=== PATIENT | male | born 1970 | race Caucasian/White ===

== ENCOUNTER 2016-02-09 13:52 | Day surgery (SDC) | payer BC ==
[2016-02-01 12:28] VITALS: BMI 36.2
[~2016-02-09 13:52] MED LIST: DEXAMETHASONE SOD PHOSPHATE 10 MG/ML 1 ML VIAL IV ONE; FAMOTIDINE 20 MG/2 ML VIAL IV PRN; HEPARIN SODIUM,PORCINE 5,000 UNIT/ML 1 ML VIAL SQ ONE; LIDOCAINE 1% 20 ML VIAL (10MG/ML) FOR IV START INTRADERMA PRN; MIDAZOLAM 2 MG/2 ML VIAL IV PRN; ONDANSETRON 4 MG/2 ML VIAL IVP ONE; SCOPOLAMINE 1.5MG/72HR PATCH TRANSDERM ONE
[2016-02-09] MEDS: LACTATED RINGERS 1,000 ML IV SCH ×2 (14:03→14:30)
--- NOTE | 2016-02-09 14:35 | P.GSHP ---
History of Present Illness H&P Date: 02/09/16 Chief Complaint: Incarcerated umbilical hernia This a 45-year-old male referred from Dr. Horowitz. Patient developed an incarcerated umbilical hernia. He presents today for laparoscopic robotic assistance repair repair. - Constitutional Constitutional: Reports as per HPI Past Medical History Additional Past Medical History / Comment(s): UMBILICAL HERNIA History of Any Multi-Drug Resistant Organisms: None Reported Past Surgical History: Orthopedic Surgery Additional Past Surgical History / Comment(s): RT THUMB SX Past Anesthesia/Blood Transfusion Reactions: Postoperative Nausea & Vomiting ( PONV) Past Psychological History: Anxiety Smoking Status: Former smoker Past Alcohol Use History: Occasional Additional Past Alcohol Use History / Comment(s): QUIT SMOKING 2013 Past Drug Use History: None Reported - Past Family History Mother Family Medical History: No Reported History Medications and Allergies Home Medications Medication Instructions Recorded Confirmed Type clonazePAM [KlonoPIN] 0.5 mg PO DAILY PRN 02/01/16 02/09/16 History Allergies Allergy/AdvReac Type Severity Reaction Status Date / Time No Known Allergies Allergy Verified 02/01/16 12:19 Surgical - Exam Vital Signs Temp Pulse Resp BP Pulse Ox 97 F L 92 16 174/109 96 02/09/16 14:00 02/09/16 14:00 02/09/16 14:00 02/09/16 14:00 02/09/16 14:00 - General well developed, no distress - Eyes PERRL - ENT normal pinna - Neck no masses - Respiratory normal expansion - Cardiovascular Rhythm: regular - Abdomen Abdomen: soft, non tender Hernia: umbilical Assessment and Plan Plan: Incarcerated umbilical hernia. We'll perform laparoscopic robotic assistance repair.
[2016-02-09] MEDS ORDERED: BUPIVACAIN-EPI 0.25%-1:200,000 30 ML VIAL SQ ONE ×2 (15:05→16:13)
[2016-02-09] MEDS ORDERED: LIDOCAINE 1% INJ 10MG/ML (20 ML MDV) ONE (15:09)
[2016-02-09] MEDS ORDERED: KETOROLAC 30 MG/ML 1 ML VIAL ONE (15:09)
[2016-02-09] MEDS ORDERED: fentaNYL (PF) 50 MCG/ML 2 ML AMP ONE (15:09)
[2016-02-09] MEDS ORDERED: NEOSTIGMINE 1 MG/ML 10 ML VIAL ONE (15:09)
[2016-02-09] MEDS ORDERED: ceFAZolin 1,000 MG VIAL ONE (15:09)
[2016-02-09] MEDS ORDERED: ROCURONIUM BROMIDE 10 MG/ML 10 ML VIAL IV ONE (15:09)
[2016-02-09] MEDS ORDERED: GLYCOPYRROLATE 0.2 MG/ML 2 ML VIAL ONE (15:09)
[2016-02-09] MEDS ORDERED: SUCCINYLCHOLINE CHLORIDE VIAL 200 MG/10 ML VIAL IV ONE (15:09)
[2016-02-09] MEDS ORDERED: SODIUM CHLORIDE 0.9% 100 ML BAG ONE (15:09)
[2016-02-09] MEDS ORDERED: PROPOFOL 10 MG/ML 20 ML VIAL IV ONE (15:09)
[2016-02-09] MEDS ORDERED: MIDAZOLAM 2 MG/2 ML VIAL ONE (15:09)
[2016-02-09] MEDS: ceFAZolin 2 GM in SODIUM CHLORIDE 0.9% 100 ML IVPB ONE ×2 (15:24→15:25)
--- NOTE | 2016-02-09 16:17 | P.OP ---
Date of Procedure: 02/09/16 Preoperative Diagnosis: Incarcerated umbilical hernia Postoperative Diagnosis: Incarcerated umbilical hernia Procedure(s) Performed: Laparoscopic robotic-assisted repair of incarcerated umbilical hernia Anesthesia: [facility] Surgeon: Al Tsang Estimated Blood Loss (ml): 5 Pathology: none sent Condition: stable Disposition: PACU Description of Procedure: The patient's placed on the operative table in the supine position. He received general anesthesia. His abdomen was prepped and draped in sterile fashion. The abdomen was entered through the left upper quadrant using a blade less trocar under direct visualization. After adequate insufflation the laparoscope placed back the pleural cavity. Next a 8 mm robotic trochars placed in the left lower quadrant. And then a 12 mm trochars placed in the left lateral position and another 8 mm trochars placed in the left upper quadrant. The incarcerated umbilical hernia was visualized. Using the hook cautery the incarcerated omentum was withdrawn from the hernia. The fascial defect was then closed using OV lock suture. Next a round ventral light ST mesh was placed. Cavity and secured with 2 OV lock suture. The needles were withdrawn after the patient was undocked from the robot. The fascial 12 mm trocar site was closed with 0 Ethibond suture. Skin was closed interrupted 3-0 Monocryl suture. Dermabond was applied. Patient was sent to recovery in stable condition.
[2016-02-09 16:44] VITALS: TEMP 96.8
[2016-02-09] MEDS: HYDROmorphone 1 MG/ML 1 ML SYRINGE IVP PRN ×5 (16:48→17:03)
[2016-02-09] MEDS ORDERED: HYDROcodone/APAP 7.5-325MG 1 EACH TAB PO ONE (17:35)
[2016-02-09 17:47] VITALS: RESP 16
[2016-02-09 18:08] VITALS: PULSE 90
[2016-02-09 18:22] VITALS: BP 135/89
== END 2016-02-09 18:51 | disposition home or self-care (01) ==
LOC: OR 13:52
PROVIDERS: ATTEND Surgery
DX: K42.0 Umbilical hernia with obstruction, without gangrene (principal); F41.9 Anxiety disorder, unspecified; E66.01 Morbid (severe) obesity due to excess calories; Z68.36 Body mass index [BMI] 36.0-36.9, adult; Z79.899 Other long term (current) drug therapy; Z87.891 Personal history of nicotine dependence
CPT/HCPCS: 49653; S2900

== ENCOUNTER 2016-06-24 11:08 | Observation (INO) | payer BC ==
[2016-06-24] MEDS ORDERED: ASPIRIN 81 MG CHEW PO STA (11:39)
[2016-06-24] MEDS ORDERED: LORazepam 2 MG/ML SYRINGE IV STA (11:39)
[2016-06-24] MEDS ORDERED: NITROGLYCERIN OINT 1 INCH/GM PACKET TOPICAL STA (11:39)
--- NOTE | 2016-06-24 12:16 | ED ---
General Adult HPI - General Chief complaint: Dizziness Stated complaint: HTN,sweats Time Seen by Provider: 06/24/16 11:15 Source: patient, RN notes reviewed Mode of arrival: wheelchair Limitations: no limitations - History of Present Illness Initial comments: This is a 46 her old male who presents emergency department stating that he had some pressure in his chest last night that radiated down his left arm and he continues since then. Patient states it started at 7 PM last evening. Patient states he did wake up with sweats at one point last night and mildly nauseated. Patient states he had no difficulty breathing or shortness of breath. Patient states she's had no recent fever chills or cough. Patient denied any palpitations. Patient denies any chest pain whatsoever. Patient denies abdominal pain patient denies nausea vomiting diarrhea. Patient states she's been trying to get his blood pressure down recently but they've been having a difficult time getting the right medications. Patient states he also is a smoker. - Related Data Home Medications Medication Instructions Recorded Confirmed clonazePAM [KlonoPIN] 0.25 - 0.5 mg PO DAILY PRN 02/01/16 06/24/16 Lisinopril [Zestril] 20 mg PO BID 06/24/16 06/24/16 Allergies Allergy/AdvReac Type Severity Reaction Status Date / Time No Known Allergies Allergy Verified 06/24/16 12:45 Review of Systems ROS Statement: Those systems with pertinent positive or pertinent negative responses have been documented in the HPI. ROS Other: All systems not noted in ROS Statement are negative. Past Medical History Past Medical History: Hypertension Additional Past Medical History / Comment(s): UMBILICAL HERNIA History of Any Multi-Drug Resistant Organisms: None Reported Past Surgical History: Orthopedic Surgery Additional Past Surgical History / Comment(s): RT THUMB SX, umbilical hernia repair Past Anesthesia/Blood Transfusion Reactions: Postoperative Nausea & Vomiting ( PONV) Past Psychological History: Anxiety Smoking Status: Current every day smoker Past Alcohol Use History: Occasional Additional Past Alcohol Use History / Comment(s): QUIT SMOKING 2013 Past Drug Use History: None Reported - Past Family History Mother Family Medical History: No Reported History General Exam - General Exam Comments Initial Comments: GENERAL: Patient is well-developed and well-nourished. Patient is nontoxic and well- hydrated and is in mild distress. ENT: Neck is soft and supple. No significant lymphadenopathy is noted. Oropharynx is clear. Moist mucous membranes. Neck has full range of motion without eliciting any pain. There is no thyroid enlargement and no masses were felt. EYES: The sclera were anicteric and conjunctiva were pink and moist. Extraocular movements were intact and pupils were equal round and reactive to light. Eyelids were unremarkable. PULMONARY: Unlabored respirations. Good breath sounds bilaterally. No audible rales rhonchi or wheezing was noted. CARDIOVASCULAR: There is a regular rate and rhythm without any murmurs gallops or rubs. Femoral pulses are equal bilaterally ABDOMEN: Soft and nontender with normal bowel sounds. No palpable organomegaly was noted. There is no palpable pulsatile mass. SKIN: Skin is clear with no lesions or rashes and otherwise unremarkable. NEUROLOGIC: Patient is alert and oriented x3. Cranial nerves II through XII are grossly intact. Motor and sensory are also intact. Normal speech, volume and content. Symmetrical smile. Cerebellar exam grossly intact. MUSCULOSKELETAL: Normal extremities with adequate strength and full range of motion. No lower extremity swelling or edema. No calf tenderness. LYMPHATICS: No significant lymphadenopathy is noted PSYCHIATRIC: Normal psychiatric evaluation. Normal interpersonal interactions appears functionally intact in deals appropriately with others. No signs of depression. Mild anxiety Limitations: no limitations Course Vital Signs 06/24/16 06/24/16 06/24/16 11:14 12:00 12:25 Temperature 98.6 F Pulse Rate 73 68 89 Respiratory 18 16 16 Rate Blood Pressure 184/107 140/87 144/97 O2 Sat by Pulse 98 97 98 Oximetry 06/24/16 13:40 Temperature 97.8 F Pulse Rate 83 Respiratory 16 Rate Blood Pressure 127/83 O2 Sat by Pulse 98 Oximetry Medical Decision Making - Medical Decision Making EKG shows normal sinus rhythm at 76 bpm WA interval is on a 34 QRS is 90 QT interval 368 QTC is 414 per patient's EKG shows no ST segment elevation or depression or T wave abnormalities are noted. Chest x-ray shows no acute abnormality. Patient's symptoms were significant in the fact that nitroglycerin relieved those symptoms and he feels with the patient was having unstable angina/started the patient on heparin I spoke with Dr. White he agreed about the admission I wrote admitting orders I consult to cardiology and continue the heparin and aspirin and nitro paste on the floor. - Lab Data Result diagrams: 06/24/16 11:45 06/24/16 11:45 Lab Results 06/24/16 06/24/16 06/24/16 Range/Units 11:45 11:45 11:45 WBC 8.7 (3.8-10.6) k/uL RBC 5.89 (4.30-5.90) m/uL Hgb 17.4 (13.0-17.5) gm/dL Hct 52.2 (39.0-53.0) % MCV 88.6 (80.0-100.0) fL MCH 29.6 (25.0-35.0) pg MCHC 33.3 (31.0-37.0) g/dL RDW 13.1 (11.5-15.5) % Plt Count 300 (150-450) k/uL Neutrophils % 70 % Lymphocytes % 19 % Monocytes % 7 % Eosinophils % 2 % Basophils % 1 % Neutrophils # 6.1 (1.3-7.7) k/uL Lymphocytes # 1.7 (1.0-4.8) k/uL Monocytes # 0.6 (0-1.0) k/uL Eosinophils # 0.1 (0-0.7) k/uL Basophils # 0.1 (0-0.2) k/uL PT (9.0-12.0) sec INR (<1.1) APTT (22.0-30.0) sec Sodium 141 (137-145) mmol/L Potassium 4.6 (3.5-5.1) mmol/L Chloride 109 H (98-107) mmol/L Carbon Dioxide 25 (22-30) mmol/L Anion Gap 7 mmol/L BUN 13 (9-20) mg/dL Creatinine 0.91 (0.66-1.25) mg/dL Est GFR (MDRD) Af Amer >60 (>60 ml/min/1.73 sqM) Est GFR (MDRD) Non-Af >60 (>60 ml/min/1.73 sqM) Glucose 95 (74-99) mg/dL Calcium 9.5 (8.4-10.2) mg/dL Magnesium 2.1 (1.6-2.3) mg/dL Total Bilirubin 0.7 (0.2-1.3) mg/dL AST 27 (17-59) U/L ALT 48 (21-72) U/L Alkaline Phosphatase 61 (38-126) U/L Total Creatine Kinase 131 (55-170) U/L CK-MB (CK-2) 1.0 (0.0-2.4) ng/mL CK-MB (CK-2) Rel Index 0.8 Troponin I <0.012 (0.000-0.034) ng/mL Total Protein 7.0 (6.3-8.2) g/dL Albumin 4.2 (3.5-5.0) g/dL 06/24/16 Range/Units 11:45 WBC (3.8-10.6) k/uL RBC (4.30-5.90) m/uL Hgb (13.0-17.5) gm/dL Hct (39.0-53.0) % MCV (80.0-100.0) fL MCH (25.0-35.0) pg MCHC (31.0-37.0) g/dL RDW (11.5-15.5) % Plt Count (150-450) k/uL Neutrophils % % Lymphocytes % % Monocytes % % Eosinophils % % Basophils % % Neutrophils # (1.3-7.7) k/uL Lymphocytes # (1.0-4.8) k/uL Monocytes # (0-1.0) k/uL Eosinophils # (0-0.7) k/uL Basophils # (0-0.2) k/uL PT 10.9 (9.0-12.0) sec INR 1.1 (<1.1) APTT 26.2 (22.0-30.0) sec Sodium (137-145) mmol/L Potassium (3.5-5.1) mmol/L Chloride (98-107) mmol/L Carbon Dioxide (22-30) mmol/L Anion Gap mmol/L BUN (9-20) mg/dL Creatinine (0.66-1.25) mg/dL Est GFR (MDRD) Af Amer (>60 ml/min/1.73 sqM) Est GFR (MDRD) Non-Af (>60 ml/min/1.73 sqM) Glucose (74-99) mg/dL Calcium (8.4-10.2) mg/dL Magnesium (1.6-2.3) mg/dL Total Bilirubin (0.2-1.3) mg/dL AST (17-59) U/L ALT (21-72) U/L Alkaline Phosphatase (38-126) U/L Total Creatine Kinase (55-170) U/L CK-MB (CK-2) (0.0-2.4) ng/mL CK-MB (CK-2) Rel Index Troponin I (0.000-0.034) ng/mL Total Protein (6.3-8.2) g/dL Albumin (3.5-5.0) g/dL Critical Care Time Critical Care Time: Yes Total Critical Care Time: 35 Disposition Clinical Impression: Unstable angina Disposition: ADMITTED IP TO THIS HOSP Referrals: Mica Horowitz MD [Primary Care Provider] - 1-2 days Time of Disposition: 13:54
[2016-06-24 12:17] LABS: INR 1.1 (<1.1); Partial Thromboplastin Time 26.2 sec (22.0-30.0); Prothrombin Time 10.9 sec (9.0-12.0)
[2016-06-24 12:21] LABS: Creatine Kinase 131 U/L (55-170)
[2016-06-24 12:23] LABS: ALT 48 U/L (21-72); AST 27 U/L (17-59); Alkaline Phosphatase 61 U/L (38-126); Anion Gap 7 mmol/L; Blood Urea Nitrogen 13 mg/dL (9-20); Calcium 9.5 mg/dL (8.4-10.2); Carbon Dioxide 25 mmol/L (22-30); Chloride 109 mmol/L (98-107); Glucose 95 mg/dL (74-99); Magnesium 2.1 mg/dL (1.6-2.3); Non-African American GFR(MDRD) >60 (>60 ml/min/1.73 sqM); Potassium 4.6 mmol/L (3.5-5.1); Sodium 141 mmol/L (137-145); Total Bilirubin 0.7 mg/dL (0.2-1.3)
[2016-06-24] MEDS ORDERED: ACETAMINOPHEN TAB 500 MG TAB PO STA (12:24)
[2016-06-24 12:26] LABS: Basophils # (A) 0.1 k/uL (0-0.2); Basophils % (A) 1 %; CH 30.2; CHCM 34.3; Eosinophils # (A) 0.1 k/uL (0-0.7); Eosinophils % (A) 2 %; HCT 52.2 % (39.0-53.0); HDW 2.71; HGB 17.4 gm/dL (13.0-17.5); Luc # (Auto) 0.16; Luc % (Auto) 2; Lymphocytes # (A) 1.7 k/uL (1.0-4.8); Lymphocytes % (A) 19 %; MCH 29.6 pg (25.0-35.0); MCHC 33.3 g/dL (31.0-37.0); MCV 88.6 fL (80.0-100.0); Mean Platelet Volume 7.2; Monocytes # (A) 0.6 k/uL (0-1.0); Monocytes % (A) 7 %; Neutrophils # (A) 6.1 k/uL (1.3-7.7); Neutrophils % (A) 70 %; RBC 5.89 m/uL (4.30-5.90); RDW 13.1 % (11.5-15.5); WBC 8.7 k/uL (3.8-10.6); WBC (Perox) 8.78
--- NOTE | 2016-06-24 12:28 | XR ---
EXAMINATION TYPE: XR chest 2V DATE OF EXAM: 06/24/2016 12:14 PM COMPARISON: None HISTORY: 46-year-old male with chest pain TECHNIQUE: PA and lateral views FINDINGS: The cardiomediastinal silhouette, aorta, and pulmonary vasculature are within normal limits. Mild per ibronchial cuffing. Band of opacity at the right midlung. Otherwise, no consolidation or pleural effu areli. IMPRESSION: 1. Band of atelectasis at the right midlung. 2. Mild peribronchial cuffing. Correlate for any symptoms of bronchitis or chronic asthma
[2016-06-24 12:34] LABS: Troponin I <0.012 ng/mL (0.000-0.034)
[2016-06-24] MEDS ORDERED: HEPARIN SODIUM,PORCINE 5,000 UNIT/ML 1 ML VIAL IV ONE (12:35)
[2016-06-24] MEDS ORDERED: HEPARIN SODIUM,PORCINE/D5W PMX 25,000 UNIT in DEXTROSE/WATER 1 500ML.BAG IV SCH (12:45)
[2016-06-24] MEDS ORDERED: NITROGLYCERIN SL TABS 0.4 MG TAB SUBLINGUAL PRN (13:56)
[2016-06-24] MEDS ORDERED: ACETAMINOPHEN TAB 500 MG TAB PO PRN (17:03)
[2016-06-24 18:16] LABS: Creatine Kinase 99 U/L (55-170)
[2016-06-24 18:29] LABS: Creatine Kinase MB 0.7 ng/mL (0.0-2.4); Troponin I <0.012 ng/mL (0.000-0.034)
[2016-06-24] MEDS: NITROGLYCERIN OINT 1 INCH/GM PACKET TOPICAL SCH (18:29)
[2016-06-24] MEDS ORDERED: clonazePAM 0.5 MG TAB PO PRN (19:06)
[2016-06-24] MEDS: LISINOPRIL 20 MG TAB PO SCH (20:06)
[2016-06-24] MEDS ORDERED: HEPARIN SODIUM,PORCINE 5,000 UNIT/ML 1 ML VIAL IV PRN (20:44)
[2016-06-24 23:48] LABS: Creatine Kinase 89 U/L (55-170)
[2016-06-25 00:01] LABS: Creatine Kinase MB 0.8 ng/mL (0.0-2.4); Troponin I <0.012 ng/mL (0.000-0.034)
[2016-06-25 03:50] LABS: Cholesterol 171 mg/dL (<200); HDL Cholesterol 33 mg/dL (40-60); Triglycerides 138 mg/dL (<150)
[2016-06-25] MEDS: NITROGLYCERIN OINT 1 INCH/GM PACKET TOPICAL SCH ×2 (04:15→06:54)
[2016-06-25 08:11] VITALS: BP 125/77; PULSE 70; RESP 16; TEMP 98.6
[2016-06-25] MEDS: LISINOPRIL 20 MG TAB PO SCH (08:27)
--- NOTE | 2016-06-25 08:59 | CONS ---
DATE OF CONSULTATION: Mr. Ennis is a 46-year-old male patient with hypertension who was initially on lisinopril 20 mg a day. Two weeks back Dr. Horowitz increased it to 20 mg twice daily for elevated blood pressure readings. His blood pressure has been in normal range except yesterday he was under some stress and may have had a salty meal. After that he noted his blood pressures elevated to the 150s and he got very anxious. Repeat blood pressure checks showed that the number was 180 systolic and that made him even more anxious. Subsequently he started having jaw discomfort, chest discomfort and numbness in the fingers and the left arm numbness in the toes and he thought he was having stroke and came to the hospital. REVIEW OF SYSTEMS: No fever, chills, rigors. No cough or expectoration. No nausea, vomiting diarrhea, hematuria, or dysuria. No strokes or seizures. No skin lesions. No musculoskeletal complaints. MEDICATIONS: Lisinopril 20 mg twice daily and Klonopin. ALLERGIES: No known drug allergies. SOCIAL HISTORY: Past history of smoking. He quit smoking in 2013. He recently started smoking again. Minimal social alcohol use. No history of dyslipidemia or diabetes. History of umbilical hernia. On examination, his blood pressure at this time is normal, 125/77 mmHg, heart rate is in the 70s. Head and neck examination is normal. Heart sounds S1, S2 normal. No murmurs, no gallop, no rub. EXTREMITIES: Warm. No edema. ABDOMEN: Soft, nontender. Labs are reviewed. His hemoglobin is normal 17.4, electrolytes are normal. Renal function is normal. Cardiac enzymes are completely normal. LDL is 110, HDL is low at 33, total cholesterol 171, triglycerides 138. 12-lead ECG shows sinus mechanism. No ST segment abnormalities. IMPRESSION: 1. Essential hypertension. 2. Anxiety disorder. 3. Current smoker. 4. Low HDL. SUGGEST: Continue lisinopril 20 mg twice daily, low-fat diet, low-salt diet. Home blood pressure monitoring. I will see him again in about 2 to 3 weeks. He may go home from the cardiac standpoint. His cardiac enzymes are completely normal. EKG is normal.
[2016-06-25] MEDS ORDERED: ASPIRIN 325 MG TAB PO SCH (09:00)
--- NOTE | 2016-06-25 12:17 | HP ---
DATE OF ADMISSION: 06/24/2016 CHIEF COMPLAINT: Left jaw pain. HISTORY OF PRESENT ILLNESS: This is a 46-year-old male with a history of hypertension, presents to the hospital with left jaw pain. Patient said that he has been through a lot of anxiety and stress in his life recently. 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 The patient had this jaw pain and then after that he felt anxious. Presented to the emergency. Initial EKG was normal. Troponin was normal. Patient was kept for observation given the history of hypertension and tobacco dependency. ER physician insists that the patient stay here even the patient asked him if he can go home and follow up with his primary care physician outpatient. Patient denied any nausea or vomiting, sweating, radiation to the left arm or any other symptoms. Patient has no significant family history as his mother has a high cholesterol, his brother and sisters healthy and alive and his dad was way from the patient and they do not know any family history on him. REVIEW OF SYSTEMS: All 14 systems reviewed and negative except as above. ALLERGIES: No known drug allergies. Home medications: 1. Klonopin 0.5 mg as needed. 2. Lisinopril 20 mg twice daily. PAST MEDICAL AND SURGICAL HISTORY: 1. Hypertension. 2. Anxiety. 3. Umbilical hernia. 4. Orthopedic surgery. SOCIAL HISTORY: The patient is smoker, at the bedside. Denied alcohol or drug abuse. FAMILY HISTORY: As mentioned above. PHYSICAL EXAMINATION: VITAL SIGNS: Reviewed and stable. GENERAL: In his stated age, no acute distress. HEENT: Atraumatic, normocephalic. PERRLA. LUNGS: Clear to auscultation bilaterally. HEART: Normal S1, S2. ABDOMEN: Soft, bowel sounds present in all 4 quadrants. EXTREMITIES: Lower extremity no edema. PSYCHIATRY: Alert and oriented x3. NEURO: Cranial nerves II through XII are intact. Normal deep tendon reflexes and sensation. Imaging and labs: CBC normal. Chem-7 normal with lipase, amylase, ALT and AST, within normal limit. Troponin was negative. Albumin normal. PT, PTT, INR within normal limit. EKG showed no ST or T-wave abnormality. ASSESSMENT AND PLAN: 1. Left jaw pain that responded to nitroglycerin, noncardiac related. Troponin negative. EKG is negative. The patient is asymptomatic since that time and believe its only muscle spasm. We will have patient follow-up with his primary care physician after discharge. 2. Hypertension, uncontrolled per patient and his . We will continue Lisinopril once twice daily and consultation medication adherence, diet adherence and close follow up with his primary care physician. 3. Anxiety, seems to be controlled. 4. Tobacco dependency. Long discussion with the patient and his regarding tobacco cessation and he is willing to quit at this point.
== END 2016-06-25 11:48 | disposition home or self-care (01) ==
LOC: EC 11:08 → 3SUR 13:57 → 3OBS 17:43
PROVIDERS: ADMIT Internal Medicine; ATTEND Internal Medicine
DX: R68.84 Jaw pain (principal); I10 Essential (primary) hypertension; F41.9 Anxiety disorder, unspecified; F17.210 Nicotine dependence, cigarettes, uncomplicated; R42 Dizziness and giddiness; R07.89 Other chest pain; R20.0 Anesthesia of skin; R61 Generalized hyperhidrosis; Z79.899 Other long term (current) drug therapy
CPT/HCPCS: 96366 ×2; 96376 ×2; 96365; 96375; 99285; 36415; 93005; 80061; 80053; 82550; 82553; 83735; 84484; 85025; 85610; 85730 ×2; 71020; G0378 ×2; J2060; J1644 ×2

== ENCOUNTER → 2019-03-13 | Outpatient (CLI) | payer BC ==
--- NOTE | 2019-03-13 22:42 | CONS ---
CONSULTATION DATE OF SERVICE: 03/13/2019 49-year-old gentleman who has been evaluated in the sleep center for possible obstructive sleep apnea-hypopnea syndrome. HISTORY OF PRESENT ILLNESS/SLEEP WAKE EVALUATION: SLEEP SCHEDULE: Patient's usual sleep schedule on working days from 10 p.m. until 5 a.m. and on weekends from around 10 to 11 pm to 6 - 7 a.m. FALLING ASLEEP: No problems with falling asleep, although he has TV set in bedroom. DURING SLEEP: He sleeps in different position. According to his he has very loud snoring and witnessed episodes of stopped breathing during the sleep with episodes of choking and gasping for air. The patient sometimes grinding his teeth, has episodes of dry mouth, panic attack, heartburn, sweating. DURING THE DAY/SLEEP WAKE EVALUATION: In the morning, patient wakes up tired, feels sleepy. During the day [place] Sleepiness Scale increased to 11. He has episodes of irritability and anxiety. [place] Sleepiness Scale significantly increased to 11. PAST MEDICAL HISTORY: Positive for hypertension, anxiety. PAST SURGICAL HISTORY: Hernia repair, surgery for belly button hernia. MEDICATIONS: Labetalol, escitalopram. SOCIAL HISTORY: Positive for smoking less than 1 pack a day for about 30 years. Alcohol consumption occasional. FAMILY HISTORY: Hypertension, hyperlipidemia, arthritis, sinus problems, snoring, bronchitis, acid reflux, ulcers. REVIEW OF SYSTEMS: Snoring, feeling sleepy and tired during the day. PHYSICAL EXAM: gentleman without distress. BP 164/99, HR 76, RR 14, height 5 feet 11 inches, weight 282.2, body mass index 39.3, temperature 98.3, oxygen saturation at room air 97%. Oropharynx moderately low position of soft palate, Mallampati 2-3. Short distance between soft palate and posterior pharyngeal wall. Wide neck 18 and 0.25 inches in circumference. NECK: Supple, no JVD. Thyroid is not palpable. LUNGS: Clear to percussion and to auscultation. Good air exchange. No wheezing or rhonchi. HEART: S1, S2 regular. No murmurs, gallops, or rubs. ABDOMEN: Obese. Soft and nontender. Bowel sounds are present. No organomegaly appreciated. EXTREMITIES: No clubbing or cyanosis. 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 Cranial nerves 2 to 7 intact. There is no fasciculation or atrophy. noted. No focal deficits observed. IMPRESSION: 1. Loud snoring, witnessed episodes of stopped breathing during sleep. Mallampati II to III. Short distance between soft palate and posterior pharyngeal wall. Wide neck 18-1/4 inches in circumference, sleepiness. [place] Sleepiness Scale is 11, obstructive sleep apnea-hypopnea syndrome. 2. Obesity, body mass index 39.3. 3. Hypertension. 4. History of anxiety. 5. Status post hernia repair surgery for belly button surgery. PLAN: 1. Home sleep apnea test for evaluation of patient's breathing during sleep. 1. CPAP/BiPAP titration if sleep study confirms obstructive sleep apnea-hypopnea syndrome. 2. Preferable position during sleep on the side. 3. No driving if patient feels any sleepiness. 4. I will see patient for follow up visit to explain results of testing and following plan. Thank you very much for referring this patient for consultation. Sincerely, Gutierrez Whitehead MD, PhD, FAASM Diplomat of [place] [employer] [place] [employer] [facility] [place] MMODL / IJN: [id number] /
== END | disposition home or self-care (01) ==
LOC: SLEEP 16:06
PROVIDERS: ATTEND Internal Medicine
DX: Z53.9 Procedure and treatment not carried out, unspecified reason (principal)

== ENCOUNTER → 2019-07-31 | Outpatient (CLI) | payer BC ==
--- NOTE | 2019-08-01 05:34 | SFUN ---
SLEEP CENTER FOLLOW UP NOTE DATE OF SERVICE: 07/31/2019 This is a 49-year-old gentleman who has been followed in sleep center for treatment of obstructive sleep apnea-hypopnea syndrome. Recently patient had a home sleep apnea test which showed severe sleep apnea with apnea-hypopnea index 65.5, and then patient had CPAP titration and his respiration during titration was normalized. Subsequently, he was started on treatment with CPAP. Today his follow-up visit on CPAP. He is able to use CPAP practically every night, feels better with the CPAP, but had some problem related to the mask. He was started on treatment with full face mask, large size during the titration, but then he received medium size from company and he did not feel comfortable with that was switched to nasal pillow mask, also does not like it. I checked his CPAP unit. CPAP pressure was around 11 cm of water, usage 23 out of 30 nights for more than 4 hours. Average usage 4.7 hours per night. Otherwise, patient using equipment every night. Apnea-hypopnea index 1.5. Leak is 13 L/minute, which is in normal range. MEDICATIONS: Labetalol, , escitalopram. PHYSICAL EXAMINATION: GENERAL; Patient in no distress. VITAL SIGNS: BP 136/89, HR 70, RR 16, weight 283, temp 98.6, oxygen saturation on room air 96%. HEENT: PERRLA, EOMI. Oropharynx low position of soft palate. NECK: Supple, no JVD. Thyroid is not palpable. LUNGS: Clear to percussion and to auscultation. Good air exchange. No wheezing or rhonchi. HEART: S1, S2 regular. No murmurs, gallops, or rubs. ABDOMEN: Obese. EXTREMITIES: No clubbing or cyanosis. RADIOLOGY TECH: Awake, alert, and oriented X3. Cranial nerves 2 to 7 intact. There is no fasciculation or atrophy. noted. No focal deficits observed. IMPRESSION: 1. Obstructive sleep apnea-hypopnea syndrome in severe range on full control with CPAP at 11 cm of water. The patient has some problems related to a full-face mask. 2. Obesity. 3. Hypertension. 4. Anxiety. 5. Status post surgery on the belly button. PLAN: 1. We will try a nasal mask if necessary with a chinstrap. 2. Patient will continue to use CPAP equipment every night. 3. Losing weight. 4. Sleep hygiene with regular time in bed for at least 7-1/2 to 8 hours. 5. No driving if feeling sleepiness. Thank you very much for allowing me to participate in management of your patient. Sincerely, Gutierrez Whitehead MD, PhD, FAASM Diplomat of [place] [employer] [place] [employer] [facility] [place] MMODL / ANDRÉSN: [id number] /
== END | disposition home or self-care (01) ==
LOC: SLEEP 15:10
PROVIDERS: ATTEND Internal Medicine
DX: G47.33 Obstructive sleep apnea (adult) (pediatric) (principal); E66.9 Obesity, unspecified; I10 Essential (primary) hypertension; F41.9 Anxiety disorder, unspecified; Z99.89 Dependence on other enabling machines and devices; Z98.890 Other specified postprocedural states; Z79.899 Other long term (current) drug therapy

== ENCOUNTER → 2020-01-08 | Outpatient (CLI) | payer BC ==
--- NOTE | 2020-01-09 04:13 | SFUN ---
SLEEP CENTER FOLLOW UP NOTE DATE OF SERVICE: 01/08/2020 This 49-year-old gentleman has been followed in Sleep Center for treatment of obstructive sleep apnea-hypopnea syndrome. Patient continued to use his CPAP equipment every night. He sleeps well with the machine. [place] Sleepiness Scale is 7. I checked his CPAP unit. CPAP pressure 11 cm of water. Usage is 30 out of 30 nights and 24 out of 30 nights for more than 4 hours with average usage 5.1 hours per night, which is indicating good compliance. Leak is 12 L/minute which is borderline. Apnea- hypopnea index is 1.1. MEDICATIONS: Escitalopram 20 mg at bedtime, labetalol 80 mg twice a day, telmisartan 100 mg twice a day, melatonin 10 mg at night. PHYSICAL EXAMINATION: GENERAL: Patient in no distress. VITAL SIGNS: BP 159/96, HR 82, RR 15, height 5 feet, 11 inches, weight 281 pounds, body mass index 39.1, temperature 97.2, oxygen saturation at room air 95%. HEENT: PERRLA, EOMI. Oropharynx low position of soft palate. NECK: Supple, no JVD. Thyroid is not palpable. LUNGS: Clear to percussion and to auscultation. Good air exchange. No wheezing or rhonchi. HEART: S1, S2 regular. No murmurs, gallops, or rubs. ABDOMEN: Obese. EXTREMITIES: No clubbing or cyanosis. COLLECTION MANAGER: Awake, alert, and oriented X3. Cranial nerves 2 to 7 intact. There is no fasciculation or atrophy. noted. No focal deficits observed. IMPRESSION: 1. Obstructive sleep apnea-hypopnea syndrome. Patient demonstrated good compliance with treatment, benefitting from treatment. 2. Obesity. 3. Hypertension. 4. Anxiety. 5. Status post bellybutton surgery. PLAN: 1. Patient will continue to use PAP equipment every night for the whole night. 2. Sleep hygiene with regular time in bed for at least 7-1/2 to 8 hours. 3. Precautions related to driving. No driving if feeling sleepiness. 4. I will maintain all necessary prescription for PAP supplies including mask, tube, filters. 5. Watching weight. 6. No driving if feeling sleepiness. 7. Follow-up visit in 6 months or earlier if patient has any problems. Thank you very much for allowing me to participate in management of your patient. Sincerely, Gutierrez Whitehead MD, PhD, FAASM Diplomat of [employer] Automotive Maintenance Technician of [facility] [place] PALMA / HALI: [id number] /
== END | disposition home or self-care (01) ==
LOC: SLEEP 16:19
PROVIDERS: ATTEND Internal Medicine
DX: G47.33 Obstructive sleep apnea (adult) (pediatric) (principal); E66.9 Obesity, unspecified; I10 Essential (primary) hypertension; F41.9 Anxiety disorder, unspecified; Z98.890 Other specified postprocedural states; Z79.899 Other long term (current) drug therapy; Z99.89 Dependence on other enabling machines and devices

== ENCOUNTER → 2020-08-19 | Outpatient (CLI) | payer BC ==
--- NOTE | 2020-08-20 09:03 | SFUN ---
SLEEP CENTER FOLLOW UP NOTE DATE OF SERVICE: 08/19/2020 INTERVAL HISTORY: A 50-year-old gentleman who has been followed in Sleep Center for treatment of obstructive sleep apnea-hypopnea syndrome. Patient continued to use his CPAP equipment every night for the whole night without problems related to mask fitting, pressure, or humidification. [place] Sleepiness Scale today is 10 which is borderline. I checked his CPAP unit. Pressure is 11 cm of water. Usage is 29/30 nights for more than 4 hours. Average usage is 7.8 hours per night. Leak is 24 L/minutes which is borderline. Apnea-hypopnea index 0.9, which is perfect. MEDICATIONS: Escitalopram 20 mg at bedtime, labetalol 80 mg twice a day, Telmisartan 100 mg twice a day, rosuvastatin, melatonin 5 mg once a day. PHYSICAL EXAMINATION: GENERAL: Patient in no distress. VITAL SIGNS: BP 157/100, HR 79, RR 18, height 5 feet 11 inches, weight 292, body mass index 40.7, temperature 97.3, oxygen saturation at room air 97%. HEENT: PERRLA, EOMI, evaluation of oropharynx showed tongue protrudes midline. Low position of soft palate. NECK: Supple, no JVD. Thyroid is not palpable. LUNGS: Clear to percussion and to auscultation. Good air exchange. No wheezing or rhonchi. HEART: S1, S2 regular. No murmurs, gallops, or rubs. ABDOMEN: Obese, soft and nontender. Bowel sounds are present. No organomegaly appreciated. EXTREMITIES: No clubbing or cyanosis. PRICING STRATEGIST: Awake, alert, and oriented X3. Cranial nerves 2 to 7 intact. There is no fasciculation or atrophy. noted. No focal deficits observed. IMPRESSION: 1. Obstructive sleep apnea-hypopnea syndrome. Patient demonstrated great compliance with treatment benefitting from treatment. 2. Obesity. 3. Hypertension. 4. Anxiety. 5. Status post surgery for abdominal hernia. PLAN: 1. Patient will continue to use PAP equipment every night for the whole night. 2. Sleep hygiene with regular time in bed for at least 7-1/2 to 8 hours. 3. Precautions related to driving. No driving if feeling sleepiness. 4. I will maintain all necessary prescription for PAP supplies including mask, tube, filters. 5. Watching weight. 6. Follow-up visit in 6 months or earlier if patient has any problems. Thank you very much for allowing me to participate in the management of your patient. Sincerely, Gutierrez Whitehead MD, PhD, FAASM Diplomat of [employer] Sleep Medicine Board of [employer] Hog Tender of [facility] [place] PALMA / HALI: [id number] /
== END ==
LOC: SLEEP 16:12
PROVIDERS: ATTEND Internal Medicine
DX: G47.33 Obstructive sleep apnea (adult) (pediatric) (principal); E66.9 Obesity, unspecified; I10 Essential (primary) hypertension; F41.9 Anxiety disorder, unspecified; Z98.890 Other specified postprocedural states; Z68.41 Body mass index [BMI] 40.0-44.9, adult; Z79.899 Other long term (current) drug therapy

== ENCOUNTER → 2021-02-23 | Outpatient (CLI) | payer BC ==
--- NOTE | 2021-02-23 14:58 | SFUN ---
SLEEP CENTER FOLLOW UP NOTE DATE OF SERVICE: 02/23/2021 51-year-old gentleman has been followed in Sleep Center for treatment of obstructive sleep apnea-hypopnea syndrome. Patient continued to use his CPAP equipment every night, did not receive some of his supplies like heated hose already for more than one year. I checked his CPAP unit. CPAP pressure 11 cm of water. Usage 30/30 nights for more than 4 hours. Average usage 7.7 hours per night. Great compliance. Leak is 26 L/minute, which is borderline. Apnea-hypopnea index 0.8 which is totally normal. [place] Sleepiness Scale today is 6, which is normal. CURRENT MEDICATIONS: Rosuvastatin 10 mg once a day, labetalol 100 mg twice a day, telmisartan 80 mg twice a day, citalopram 20 mg once a day, melatonin 5 mg once a day. PHYSICAL EXAMINATION: GENERAL: Patient in no distress. BP 152/92, HR 78, RR 14, height 5 feet 10 inches, weight 297.4. The patient increased his weight on about 5 pounds since previous visit. Body mass index 42.6, temperature 97.7, oxygen saturation at room air 98%. Oropharynx: Low position of soft palate. NECK: Supple, no JVD. Thyroid is not palpable. LUNGS: Clear to percussion and to auscultation. Good air exchange. No wheezing or rhonchi. HEART: S1, S2 regular. No murmurs, gallops, or rubs. ABDOMEN: Obese. Soft and nontender. Bowel sounds are present. No organomegaly appreciated. EXTREMITIES: No clubbing or cyanosis. CLINICAL UNIT COORDINATOR: Awake, alert, and oriented X3. Cranial nerves 2 to 7 intact. There is no fasciculation or atrophy. noted. No focal deficits observed. IMPRESSION: 1. Obstructive sleep apnea-hypopnea syndrome patient demonstrated 100% compliance with treatment. Normal respiration on CPAP, benefitting from treatment. 2. Hypertension. 3. Obesity. The patient increased his weight on about 5 pounds since previous visit. 4. Anxiety. 5. Status post surgical treatment of abdominal hernia. PLAN: 1. Patient will continue to use PAP equipment every night for the whole night. 2. Sleep hygiene with regular time in bed for at least 7-1/2 to 8 hours. 3. Precautions related to driving. No driving if feeling sleepiness. 4. I will maintain all necessary prescription for PAP supplies including mask, tube, filters. 5. Watching weight. 6. Follow-up visit in 6 months or earlier if patient has any problems. Thank you very much for allowing me to participate in management of your patient. Sincerely, Gutierrez Whitehead MD, PhD, FAASM Diplomat of [employer] Sleep Medicine Board of [employer] Auxiliary Equipment Operator of [facility] [place] MMODL / ANDRÉSN: [id number] /
== END ==
LOC: SLEEP 09:53
PROVIDERS: ATTEND Internal Medicine
DX: G47.33 Obstructive sleep apnea (adult) (pediatric) (principal); G47.36 Sleep related hypoventilation in conditions classified elsewhere; I10 Essential (primary) hypertension; E66.9 Obesity, unspecified; F17.200 Nicotine dependence, unspecified, uncomplicated; F41.9 Anxiety disorder, unspecified; Z98.890 Other specified postprocedural states; Z99.89 Dependence on other enabling machines and devices; Z68.41 Body mass index [BMI] 40.0-44.9, adult; Z79.899 Other long term (current) drug therapy

== ENCOUNTER → 2021-08-16 | Outpatient (CLI) | payer BC ==
--- NOTE | 2021-08-16 09:47 | US ---
EXAMINATION TYPE: US abdomen complete DATE OF EXAM: 08/16/2021 COMPARISON: NONE CLINICAL HISTORY: R10.9 ABD PAIN. RUQ Pain radiating to back x3 weeks EXAM MEASUREMENTS: Liver Length: 18.8cm Gallbladder Wall: 0.3cm CBD: 0.5cm Spleen: 11.8cm Right Kidney: 13.0 x 6.0 x 5.3cm Left Kidney: 13.2 x 7.1 x 5.8cm Pancreas: Obscured by bowel gas Liver: Increased attenuation, focal sparing seen adjacent to GB Gallbladder: No stones seen, folds seen, wall measures 0.3cm Evidence for sonographic Mcdaniel's sign: No CBD: upper limits Spleen: Appears wnl, no abnormalities seen Right Kidney: No hydronephrosis or masses seen, obscured by bowel gas Left Kidney: No hydronephrosis or masses seen Upper IVC: wnl Abd Aorta: Appears wnl, Obscured by overlying bowel gas IMPRESSION: 1. No evidence for acute intra-abdominal process 2. Hepatic steatosis.
== END | disposition home or self-care (01) ==
LOC: RADUSWWP 08:10
PROVIDERS: ATTEND Family Medicine
DX: K76.0 Fatty (change of) liver, not elsewhere classified (principal)
CPT/HCPCS: 76700

== ENCOUNTER 2021-10-28 10:01 | Day surgery (SDC) | payer BC ==
[2021-10-27 13:04] VITALS: BMI 39.0
[~2021-10-28 10:01] MED LIST changes: -DEXAMETHASONE SOD PHOSPHATE 10 MG/ML 1 ML VIAL IV ONE; -FAMOTIDINE 20 MG/2 ML VIAL IV PRN; -HEPARIN SODIUM,PORCINE 5,000 UNIT/ML 1 ML VIAL SQ ONE; +LACTATED RINGERS 1,000 ML IV SCH; +LIDOCAINE 1% (10MG/ML) FOR IV START INTRADERMA PRN; -LIDOCAINE 1% 20 ML VIAL (10MG/ML) FOR IV START INTRADERMA PRN; -MIDAZOLAM 2 MG/2 ML VIAL IV PRN; -ONDANSETRON 4 MG/2 ML VIAL IVP ONE; -SCOPOLAMINE 1.5MG/72HR PATCH TRANSDERM ONE
[2021-10-28 11:27] VITALS: TEMP 97.2
[2021-10-28] MEDS ORDERED: PROPOFOL 10 MG/ML 20 ML VIAL IV ONE (12:26)
--- NOTE | 2021-10-28 12:41 | P.PCN ---
Date of Procedure: 10/28/21 Procedure(s) Performed: BRIEF HISTORY: Patient is a 51-year-old pleasant white male scheduled for an elective colonoscopy as a part of evaluation of prior history of colon polyps. Last colonoscopy was 5 years ago. PROCEDURE PERFORMED: Colonoscopy. PREOPERATIVE DIAGNOSIS: History of colon polyps. IV sedation per Anesthesia. PROCEDURE: After informed consent was obtained, the patient, was brought into the endoscopy unit. IV sedation was administered by Anesthesia under continuous monitoring. Digital rectal examination was normal. Initially the Olympus CF-160 flexible video colonoscope was then inserted in the rectum, gradually advanced into the cecum without any difficulty. Careful examination was performed as the scope was gradually being withdrawn. Ileocecal valve and the appendiceal orifice were visualized and appeared normal. Prep was excellent. Mucosa of the cecum, ascending colon, transverse colon, descending colon, sigmoid colon, and rectum appeared normal. Scattered sigmoid diverticulosis Retroflexion was performed in the rectum and no lesions were seen. The patient tolerated the procedure well. IMPRESSION: Normal-appearing colon from rectum to cecum with no evidence of colorectal neoplasia Sigmoid diverticulosis. RECOMMENDATIONS: Findings of this examination were discussed with the patient well as his family. He was advised to follow with the biopsy results. Recommend a repeat colonoscopy in 10 years from now..
[2021-10-28 13:05] VITALS: BP 134/70; PULSE 65; RESP 16
== END 2021-10-28 13:15 | disposition home or self-care (01) ==
LOC: ORWHC2ENDO 10:01
PROVIDERS: ATTEND Internal Medicine Gastroenterology
DX: Z12.11 Encounter for screening for malignant neoplasm of colon (principal); K57.30 Diverticulosis of large intestine without perforation or abscess without bleeding; I10 Essential (primary) hypertension; E78.5 Hyperlipidemia, unspecified; F17.200 Nicotine dependence, unspecified, uncomplicated; F41.9 Anxiety disorder, unspecified; Z86.010 Personal history of colon polyps; Z79.02 Long term (current) use of antithrombotics/antiplatelets; Z79.810 Long term (current) use of selective estrogen receptor modulators (SERMs)
CPT/HCPCS: 45378; J2704

== ENCOUNTER → 2023-01-10 | Outpatient (CLI) | payer BC ==
--- NOTE | 2023-01-10 17:19 | P.PN ---
Subjective DATE: 01/10/2023 FOLLOW UP VISIT. Patient with obstructive sleep apnea hypopnea syndrome return to sleep center for follow-up visit. Information from previous visit have been reviewed. Patient is using PAP equipment every night for the whole night, getting PAP supplies in time. The patient does not have significant problems with the mask, PAP unit and humidification. [place] sleepiness scale is 5. I checked information from PAP unit. PAP unit pressure 11 cm H2O. Usage is 100 % for more then 4 hours, average 8.5 hours per night. Leak is 5 l/m, which is in acceptable range. Apnea Hypopnea Index is 0.4, which is normal. MEDICATIONS:1. Buspirone 7.5 mg once a day 2. Labetalol 200 mg twice a day 3. Amlodipine 4. Escitalopram 10 mg once a day During physical exam: GENERAL: A pleasant patient without any distress. VITAL SIGNS: BP 161/96, HR 78, RR 16 , weight 305, temperature 98.6, oxygen saturation at room air 96 % . HEENT: PERRLA, EOMI.low position of soft palate, Mall[place]ati 3 . NECK: Supple. No JVD. LUNGS: Clear to percussion and to auscultation. Good air exchange. No wheezing or rhonchi. HEART: S1, S2 regular. ABDOMEN: Soft and nontender.[] EXTREMITIES: No clubbing or cyanosis. ANESTHESIOLOGIST PHYSICIAN: Awake, alert, and oriented x3. No focal deficit. Impressions: 1. Obstructive sleep apnea-hypopnea syndrome. Patient demonstrated great compliance with treatment, benefiting from treatment. 2. Obesity, BMI 42.5. 3. Hypertension. 4. History of anxiety. 5. Status post abdominal hernia repair. Plan: 1. Continue using PAP equipment every night for the whole night. 2. To change air filter at least 1-2 times per month. 3. PAP unit should stay lower then position of the head. 4. Advised patient to remove all remaining water from humidifier canister daily and make it dry after each usage. Refill canister with fresh distilled water before each usage. 5. Sleep hygiene with regular time in bed for at least 8 hours. 6. Precautions related to driving. No driving if feel any sleepiness. 7. I will maintain prescription for PAP supplies including mask, tube, filters. 8. Follow up visit in 6 months or earlier if patient has any problems. 9. Watching and losing weight. Thank you very much for allowing me to participate in the management of your patient. Gutierrez Whitehead MD, PhD, FAASM. Diplomat of [employer], Sleep Medicine Board by [employer] Service Station Attendant of [facility] [place]
== END ==
LOC: 3 N SLEEP 16:09
PROVIDERS: ATTEND Internal Medicine
DX: G47.33 Obstructive sleep apnea (adult) (pediatric) (principal); E66.9 Obesity, unspecified; I10 Essential (primary) hypertension; F17.200 Nicotine dependence, unspecified, uncomplicated; F41.9 Anxiety disorder, unspecified; Z98.890 Other specified postprocedural states; Z99.89 Dependence on other enabling machines and devices; Z79.899 Other long term (current) drug therapy; Z68.41 Body mass index [BMI] 40.0-44.9, adult
CPT/HCPCS: 99212

== ENCOUNTER → 2024-04-19 | Outpatient (CLI) | payer BC ==
--- NOTE | 2024-04-19 10:44 | XR ---
EXAMINATION TYPE: XR sacrum coccyx DATE OF EXAM: 04/19/2024 10:36 AM INDICATION: Patient age:Male; 54 years old; Reason for study: M54.9 BACK PAIN; PHH. pain COMPARISON: None TECHNIQUE: The sacrum/coccyx was evaluated in 3 projections. FINDINGS: There is no evidence of fracture. There is posterior subluxation of the C2 coccyx in relati on to C1 approximately 5 mm. There is no soft tissue abnormality. Both SI joints are intact. No abno rmal calcifications are present. Multilevel degenerative changes of the lower spine. IMPRESSION: 1. No acute fracture. 2. Posterior subluxation of the C2 coccyx in relation to C1. [facility], , 04/19/2024 10:42 AM
== END | disposition home or self-care (01) ==
LOC: RADXRMAIN 10:17
PROVIDERS: ATTEND Family Medicine
DX: S13.120D Subluxation of C1/C2 cervical vertebrae, subsequent encounter (principal); M53.3 Sacrococcygeal disorders, not elsewhere classified
CPT/HCPCS: 72220

== ENCOUNTER 2024-06-08 13:53 | Emergency (ER) | payer BC, OTHER ==
[2024-06-08 13:58] VITALS: TEMP 97.7
--- NOTE | 2024-06-08 15:55 | ED ---
Abdominal Pain HPI - General Source: patient, RN notes reviewed Mode of arrival: ambulatory Limitations: no limitations <Lucita Londono - Last Filed: 06/08/24 16:41> <Mckenzie Carpenter - Last Filed: 06/08/24 18:05> - General Chief Complaint: Abdominal Pain Stated Complaint: abd pain Time Seen by Provider: 06/08/24 15:53 - History of Present Illness Initial Comments: 54-year-old male with a past medical history significant of hypertension and hyperlipidemia presenting to the ER for evaluation of abdominal discomfort. He states for approximately 4 to 6 weeks he has been experiencing a bloating/pressure abdominal discomfort. Discomfort is mainly left-sided. He states the discomfort will radiate up into his chest and head and down into his lower extremities. He states he feels like he is about to "explode". He has been seen by PCP who instructed him to take MiraLAX and he was also seen by a colorectal surgeon who started him on Pepcid. He states Pepcid does mildly help with symptoms. He reports discomfort is worse at night and occasionally wakes him up out of the sleep. , bedside, reports during these "attacks" he is mildly clammy. He denies any nausea, vomiting, diarrhea or constipation. He denies dysuria, increasing urinary frequency or hematuria. He has taken [id number] Gas-X as well without relief of symptoms. Patient does report a colonoscopy 3 years ago which was negative. Patient states he is also lost 25 pounds recently given his decreased appetite. He denies any fevers, chills, chest pain, shortness of breath or peripheral edema. No other complaints. No history of ulcerative colitis, Crohn's disease or diverticulitis. Previous umbilical hernia repair, no other abdominal surgeries. Patient has appointment with PCP for evaluation of this tomorrow but states his discomfort was too intense to wait. (Lucita Londono) - Related Data Home Medications Medication Instructions Recorded Confirmed Escitalopram [Lexapro] 20 mg PO HS 10/27/21 10/28/21 Labetalol HCl 100 mg PO BID 10/27/21 10/28/21 Melatonin 5 mg PO HS 10/27/21 10/28/21 Rosuvastatin Calcium 5 mg PO MOFR 10/27/21 10/28/21 Telmisartan [Micardis] 80 mg PO BID 10/27/21 10/28/21 Allergies Allergy/AdvReac Type Severity Reaction Status Date / Time No Known Allergies Allergy Verified 06/08/24 13:57 Review of Systems ROS Other: All systems not noted in ROS Statement are negative. <Lucita Londono - Last Filed: 06/08/24 16:41> ROS Other: All systems not noted in ROS Statement are negative. <Mckenzie Carpenter - Last Filed: 06/08/24 18:05> ROS Statement: Those systems with pertinent positive or pertinent negative responses have been documented in the HPI. Past Medical History Past Medical History: Hypertension Additional Past Medical History / Comment(s): UMBILICAL HERNIA History of Any Multi-Drug Resistant Organisms: None Reported Past Surgical History: Hernia Repair, Orthopedic Surgery Additional Past Surgical History / Comment(s): RT THUMB SX, umbilical hernia repair Past Anesthesia/Blood Transfusion Reactions: Postoperative Nausea & Vomiting (PONV) Past Psychological History: Anxiety Smoking Status: Vaper Past Alcohol Use History: Rare Past Drug Use History: None Reported - Past Family History Mother Family Medical History: No Reported History <Lucita Londono - Last Filed: 06/08/24 16:41> General Exam Limitations: no limitations General appearance: alert, in no apparent distress Respiratory exam: Present: normal lung sounds bilaterally. Absent: respiratory distress, wheezes, rales, rhonchi, stridor Cardiovascular Exam: Present: regular rate, normal rhythm, normal heart sounds. Absent: systolic murmur, diastolic murmur, rubs, gallop, clicks GI/Abdominal exam: Present: soft, normal bowel sounds. Absent: distended, tenderness, guarding, rebound, rigid Neurological exam: Present: alert, oriented X3, CN II-XII intact Skin exam: Present: warm, dry, intact, normal color. Absent: rash <Lucita Londono - Last Filed: 06/08/24 16:41> Course Vital Signs 06/08/24 13:55 Temperature 97.7 F Pulse Rate 80 Respiratory 20 Rate Blood Pressure 146/90 O2 Sat by Pulse 99 Oximetry Medical Decision Making - EKG Data -: EKG Interpreted by Me <Lucita Londono - Last Filed: 06/08/24 16:41> - Lab Data Result diagrams: 06/08/24 16:19 06/08/24 16:19 <Mckenzie Carpenter - Last Filed: 06/08/24 18:05> - Medical Decision Making Was pt. sent in by a medical professional or institution ([employer]EL[employer] Amaya, MACHINE PROGRAMMER, urgent care, hospital, or prison...) When possible be specific @ -No Did you speak to anyone other than the patient for history (EMS, parent, family, police, friend...)? What history was obtained from this source @ -Patient's , bedside, aiding in HPI past medical history. Did you review nursing and triage notes (agree or disagree)? Why? @ -I reviewed and agree with nursing and triage notes Were old charts reviewed (outside hosp., previous admission, EMS record, old EKG, old radiological studies, urgent care reports/EKG's, prison records)? Report findings @ -No old charts were reviewed Differential Diagnosis (chest pain, altered mental status, abdominal pain women, abdominal pain men, vaginal bleeding, weakness, fever, dyspnea, syncope, headache, dizziness, GI bleed, back pain, seizure, CVA, palpatations, mental health, musculoskeletal)? @ -Differential Abdominal Pain Men:Appendicitis, cholecystitis, diverticulosis, ischemic bowel, pancreatitis, hepatitis, UTI, gastroenteritis, AAA, incarcerated hernia, bowel obstruction, constipation, inflammatory bowel, hepatitis, peptic ulcer disease, splenic infarction, perforated viscus, testicular torsion, this is not meant to be an all-inclusive list EKG interpreted by me (3pts min.). @ -As above X-rays interpreted by me (1pt min.). @ -None done CT interpreted by me (1pt min.). @ -Pending U/S interpreted by me (1pt. min.). @ -None done What testing was considered but not performed or refused? (CT, X-rays, U/S, labs)? Why? @ -None What meds were considered but not given or refused? Why? @ -None Did you discuss the management of the patient with other professionals (professionals i.e. FEL[employer] Amaya, MACHINE PROGRAMMER, lab, RT, psych nurse, social work faculty member, instrument installer, teacher, aoc plans intelligence officer, case advocate)? Give summary @ -No Was smoking cessation discussed for >3mins.? @ -No Was critical care preformed (if so, how long)? @ -No Were there social determinants of health that impacted care today? How? (Homelessness, low income, unemployed, alcoholism, drug addiction, transportation, low edu. Level, literacy, decrease access to med. care, fci, rehab)? @ -No Was there de-escalation of care discussed even if they declined (Discuss DNR or withdrawal of care, Hospice)? DNR status @ -No What co-morbidities impacted this encounter? (DM, HTN, Smoking, COPD, CAD, Cancer, CVA, ARF, Chemo, Hep., AIDS, mental health diagnosis, sleep apnea, morbid obesity)? @ -Hypertension, hyperlipidemia Was patient admitted / discharged? Hospital course, mention meds given and route, prescriptions, significant lab abnormalities, going to OR and other pertinent info. @ -54-year-old male presented the ER for evaluation of abdominal pressure. Vitals within acceptable limits. Upon my examination, patient resting comfortably in stretcher no signs of acute distress. Abdominal exam with tenderness to left abdomen normal bowel sounds. No rebound or guarding. La boratory studies along with CT abdomen pelvis will be ordered, patient agreeable. Case signed out to Mckenzie Carpenter PA-C pending results and disposition. (Lucita Londono) Patient signed out to me pending CT results. CT shows no evidence for acute abdominal process. Hepatic steatosis. Fat-containing umbilical hernia. Hernia repair changes with mesh present. Bilateral fat-containing inguinal hernias. Urine is unremarkable. On reassessment the patient is resting comfortably in the chair. He feels ready to go home. He is educated on today's findings. He will follow-up with his PCP at his scheduled appointment tomorrow. Follow-up with PCP. Report back to ER with any new or worsening symptoms. Discussed return parameters and answered all questions. Patient conveyed verbal understanding and agreed to the plan. I discussed this case in detail with my attending Dr. Pedroza Diagnosis/symptom? @Abdominal pain Acute, or Chronic, or Acute on Chronic? @Acute Uncomplicated (without systemic symptoms) or Complicated (systemic symptoms)? @Uncomplicated Side effects of treatment? @None Exacerbation, Progression, or Severe Exacerbation] @No Poses a threat to life or bodily function? @Unlikely (Mckenzie Carpenter) - Lab Data Lab Results 06/08/24 06/08/24 06/08/24 Range/Units 16:19 16:19 16:19 WBC 8.07 (4.50-10.00) 10*3/uL RBC 5.38 (4.40-5.60) 10*6/uL Hgb 16.3 (13.0-17.0) g/dL Hct 45.6 (39.6-50.0) % MCV 84.8 (80.0-97.0) fL MCH 30.3 (27.0-32.0) pg MCHC 35.7 (32.0-37.0) g/dL Plt Count 333 (140-440) 10*3/uL MPV 10.1 (9.5-12.2) fL Immature Gran % (Auto) 0.1 % Neutrophils % 58.8 % Lymphocytes % 26.9 % Monocytes % 11.5 % Eosinophils % 1.2 % Basophils % 1.5 % Immature Gran # 0.01 (0.00-0.04) 10*3/uL Neutrophils # 4.74 (1.80-7.70) 10*3/uL Lymphocytes # 2.17 (0.90-5.00) 10*3/uL Monocytes # 0.93 (0.20-1.00) 10*3/uL Eosinophils # 0.10 (0.04-0.35) 10*3/uL Basophils # 0.12 H (0.00-0.10) 10*3/uL Sodium 140 (137-145) mmol/L Potassium 3.7 (3.5-5.1) mmol/L Chloride 103 (98-107) mmol/L Carbon Dioxide 29 (22-30) mmol/L Anion Gap 8 mmol/L BUN 17 (9-20) mg/dL Creatinine 1.05 (0.66-1.25) mg/dL Est GFR (CKD-EPI)AfAm >90 (>60 ml/min/1.73 sqM) Est GFR (CKD-EPI)NonAf 81 (>60 ml/min/1.73 sqM) Glucose 111 H (74-99) mg/dL Plasma Lactic Acid Aaron 0.9 (0.7-2.0) mmol/L Calcium 9.7 (8.4-10.2) mg/dL Total Bilirubin 1.1 (0.2-1.3) mg/dL AST 39 (17-59) U/L ALT 69 H (4-49) U/L Alkaline Phosphatase 44 (38-126) U/L Total Protein 7.2 (6.3-8.2) g/dL Albumin 4.5 (3.5-5.0) g/dL Amylase 59 (30-110) U/L Lipase 88 (23-300) U/L Urine Color Urine Appearance (Clear) Urine pH (5.0-8.0) Ur Specific [place] (1.001-1.035) Urine Protein (Negative) Urine Glucose (UA) (Negative) Urine Ketones (Negative) Urine Blood (Negative) Urine Nitrite (Negative) Urine Bilirubin (Negative) Urine Urobilinogen (<2.0) mg/dL Ur Leukocyte Esterase (Negative) 06/08/24 Range/Units 17:25 WBC (4.50-10.00) 10*3/uL RBC (4.40-5.60) 10*6/uL Hgb (13.0-17.0) g/dL Hct (39.6-50.0) % MCV (80.0-97.0) fL MCH (27.0-32.0) pg MCHC (32.0-37.0) g/dL Plt Count (140-440) 10*3/uL MPV (9.5-12.2) fL Immature Gran % (Auto) % Neutrophils % % Lymphocytes % % Monocytes % % Eosinophils % % Basophils % % Immature Gran # (0.00-0.04) 10*3/uL Neutrophils # (1.80-7.70) 10*3/uL Lymphocytes # (0.90-5.00) 10*3/uL Monocytes # (0.20-1.00) 10*3/uL Eosinophils # (0.04-0.35) 10*3/uL Basophils # (0.00-0.10) 10*3/uL Sodium (137-145) mmol/L Potassium (3.5-5.1) mmol/L Chloride (98-107) mmol/L Carbon Dioxide (22-30) mmol/L Anion Gap mmol/L BUN (9-20) mg/dL Creatinine (0.66-1.25) mg/dL Est GFR (CKD-EPI)AfAm (>60 ml/min/1.73 sqM) Est GFR (CKD-EPI)NonAf (>60 ml/min/1.73 sqM) Glucose (74-99) mg/dL Plasma Lactic Acid Aaron (0.7-2.0) mmol/L Calcium (8.4-10.2) mg/dL Total Bilirubin (0.2-1.3) mg/dL AST (17-59) U/L ALT (4-49) U/L Alkaline Phosphatase (38-126) U/L Total Protein (6.3-8.2) g/dL Albumin (3.5-5.0) g/dL Amylase (30-110) U/L Lipase (23-300) U/L Urine Color Light Yellow Urine Appearance Clear (Clear) Urine pH 7.0 (5.0-8.0) Ur Specific [place] 1.030 (1.001-1.035) Urine Protein Negative (Negative) Urine Glucose (UA) Negative (Negative) Urine Ketones Negative (Negative) Urine Blood Negative (Negative) Urine Nitrite Negative (Negative) Urine Bilirubin Negative (Negative) Urine Urobilinogen <2.0 (<2.0) mg/dL Ur Leukocyte Esterase Negative (Negative) - EKG Data EKG Comments: EKG completed at 16: 03 showing a sinus bradycardia. Inverted T waves lead III. Ventricular rate 57, NV interval 164, QRS duration 100, QT/QTc 428/422. (Lucita Londono) Disposition <Lucita Londono - Last Filed: 06/08/24 16:41> Is patient prescribed a controlled substance at d/c from ED?: No Time of Disposition: 18:05 <Mckenzie Carpenter - Last Filed: 06/08/24 18:05> Clinical Impression: Abdominal pain Disposition: HOME SELF-CARE Condition: Good Instructions (If sedation given, give patient instructions): Abdominal Pain (ED) Additional Instructions: Follow-up with PCP. Report back to ER with any new or worsening symptoms. Referrals: Mica Horowitz MD [Primary Care Provider] - 1-2 days Ketty Farr MD [STAFF PHYSICIAN] - 1-2 days
[2024-06-08] MEDS: SODIUM CHLORIDE 0.9% 1,000 ML IV ONE (16:15)
[2024-06-08 16:43] LABS: Basophils # (A) 0.12 10*3/uL (0.00-0.10); Basophils % (A) 1.5 %; Eosinophils % (A) 1.2 %; HCT 45.6 % (39.6-50.0); HGB 16.3 g/dL (13.0-17.0); Lymphocytes # (A) 2.17 10*3/uL (0.90-5.00); Lymphocytes % (A) 26.9 %; MCH 30.3 pg (27.0-32.0); MCHC 35.7 g/dL (32.0-37.0); MCV 84.8 fL (80.0-97.0); Mean Platelet Volume 10.1 fL (9.5-12.2); Monocytes # (A) 0.93 10*3/uL (0.20-1.00); Monocytes % (A) 11.5 %; Neutrophils # (A) 4.74 10*3/uL (1.80-7.70); Neutrophils % (A) 58.8 %; Platelet Count 333 10*3/uL (140-440); RBC 5.38 10*6/uL (4.40-5.60); RDW 13.2 % (11.5-14.5); WBC 8.07 10*3/uL (4.50-10.00)
[2024-06-08 16:44] LABS: ALT 69 U/L (4-49); AST 39 U/L (17-59); African American GFR (CKD) >90 (>60 ml/min/1.73 sqM); Albumin 4.5 g/dL (3.5-5.0); Alkaline Phosphatase 44 U/L (38-126); Amylase 59 U/L (30-110); Anion Gap 8 mmol/L; Blood Urea Nitrogen 17 mg/dL (9-20); Calcium 9.7 mg/dL (8.4-10.2); Carbon Dioxide 29 mmol/L (22-30); Chloride 103 mmol/L (98-107); Glucose 111 mg/dL (74-99); Lipase 88 U/L (23-300); Non-African American GFR(CKD) 81 (>60 ml/min/1.73 sqM); Potassium 3.7 mmol/L (3.5-5.1); Sodium 140 mmol/L (137-145); Total Bilirubin 1.1 mg/dL (0.2-1.3); Total Protein 7.2 g/dL (6.3-8.2)
--- NOTE | 2024-06-08 17:23 | CT ---
EXAMINATION TYPE: CT abdomen pelvis w con DATE OF EXAM: 06/08/2024 5:14 PM COMPARISON: Ultrasound 11/24/2013. 08/24/2021. CLINICAL INDICATION: Male, 54 years old with history of pressure abd pain x 4 weeks; Pt states having abd pain for the last 6 weeks. Pt lost 25 lbs in 4 weeks TECHNIQUE: Axial CT abdomen pelvis w con;Sagittal and coronal reformats were created on a separate w orkstation. Contrast used:100ml mL of Isovue 300 with IV Contrast, (none if empty) Oral contrast used: without Oral Contrast (none if empty) CT DLP: 2179.9 mGycm, Automated exposure control for dose reduction was used. FINDINGS: LOWER CHEST: Unremarkable ABDOMEN LIVER: Diffusely hypoattenuating parenchyma. GALLBLADDER AND BILE DUCTS: Unremarkable. PANCREAS: Unremarkable. SPLEEN: Unremarkable. ADRENAL GLANDS: Unremarkable. KIDNEYS AND URETERS: No evidence of hydronephrosis or obstructing renal calculus. The ureters are unr emarkable. PELVIS BLADDER: No evidence for wall thickening or mass given limitations of exam. REPRODUCTIVE: Unremarkable. ABDOMEN & PELVIS STOMACH AND BOWEL: No evidence of bowel obstruction. The appendix is normal. PERITONEUM/RETROPERITONEUM: No evidence of pneumoperitoneum or free fluid. VASCULATURE: No evidence of aortic aneurysm. MUSCULOSKELETAL: No acute osseous abnormalities LYMPH NODES: No gross evidence for lymphadenopathy. SOFT TISSUE/ABDOMINAL WALL: What is thought to be a mesh in place. There remains a Fat-containing umb ilical hernia. Bilateral fat-containing inguinal hernias. Suspected prior hernia repair of the umbili stuart hernia with IMPRESSION: 1. No evidence for acute abdominal process. 2. Hepatic steatosis. 3. Fat-containing umbilical hernia. hernia repair changes with mesh present. 4. Bilateral fat-containing inguinal hernias. [facility], , 06/08/2024 5:21 PM
[2024-06-08 17:50] LABS: Appearance,Urine Clear (Clear); Bilirubin,Urine Negative (Negative); Blood,Urine Negative (Negative); Color,Urine Light Yellow; Glucose,Urine (UA) Negative (Negative); Ketones,Urine Negative (Negative); Leukocyte Esterase,Urine Negative (Negative); Nitrite,Urine Negative (Negative); Protein,Urine Negative (Negative); Urobilinogen,Urine <2.0 mg/dL (<2.0)
[2024-06-08 18:13] VITALS: BP 148/91; PULSE 62; RESP 18
== END 2024-06-08 18:13 | disposition home or self-care (01) ==
LOC: EC 13:53
DX: R10.9 Unspecified abdominal pain (principal); I10 Essential (primary) hypertension; E78.5 Hyperlipidemia, unspecified; F17.290 Nicotine dependence, other tobacco product, uncomplicated
CPT/HCPCS: 99284 ×2; 96360 ×2; 96361 ×2; 36415; 93005; 80053; 82150; 83605; 83690; 85025; 81003; 74177; Q9967

== ENCOUNTER → 2024-06-11 | Outpatient (CLI) | payer OTHER ==
--- NOTE | 2024-06-11 09:04 | US ---
EXAMINATION TYPE: US abdomen complete DATE OF EXAM: 06/11/2024 COMPARISON: CT 2024, US 2021 CLINICAL INDICATION: Male, 54 years old with history of R10.13 EPIGASTRIC PAIN; Bloating x a couple w eeks. TECHNIQUE: Grayscale and color Doppler imaging of the abdomen was performed. FINDINGS: EXAM MEASUREMENTS: Liver Length: 18.9 cm Gallbladder Wall: 0.27 cm CBD: Obscured Spleen: 11.4 cm Right Kidney: 12.7 x 5.6 x 6.6 cm Left Kidney: 12.9 x 6.5 x 6.9 cm PROOF PLATE MAKER NOTES: Exam is limited due to gas Pancreas: Obscured Liver: Enlarged, heterogeneous with increased echogenicity and attenuation. Limited evaluation. *Hypoechoic, indistinct area seen adjacent to the gallbladder: 1.5 x 1.5 x 1.4 cm. Gallbladder: Appears wnl Evidence for sonographic Mcdaniel's sign: No CBD: Obscured Spleen: wnl Right Kidney: *Slightly enlarged Left Kidney: Enlarged Upper IVC: Obscured due to gas Abd Aorta: *Proximal segment and iliac arteries were obscured. Portions seen appear wnl The pancreas is obscured by overlying bowel gas. The liver is enlarged with heterogenous increased ec hogenicity. No overt surface nodularity. There is a hypoechoic indistinct area adjacent to gallbladde r. Gallbladder demonstrates no stones, wall thickening or surrounding fluid. Negative sonographic Mur phy's sign. Common bile duct is obscured by overlying bowel gas. The spleen is within normal limits. No hydronephrosis, shadowing calculus or solid mass involving both kidneys. Both kidneys appear promi nent in size. Corticomedullary differentiation is maintained bilaterally. The upper IVC is obscured b y overlying bowel gas. The visualized portions of the abdominal aorta are within normal limits howeve r the proximal segment and iliac arteries are obscured by overlying bowel gas. IMPRESSION: 1. No ultrasound evidence for acute process. 2. Mild hepatomegaly with diffuse fatty infiltration and focal region of fatty sparing adjacent to ga llbladder. [facility], , 06/11/2024 9:01 AM
[2024-06-11 15:27] LABS: Basophils # (A) 0.11 X 10*3/uL (0.00-0.10); Basophils % (A) 1.6 %; Eosinophils # (A) 0.11 X 10*3/uL (0.04-0.35); Eosinophils % (A) 1.6 %; HCT 44.7 % (39.6-50.0); HGB 15.1 g/dL (13.0-17.0); Lymphocytes # (A) 1.87 X 10*3/uL (0.90-5.00); Lymphocytes % (A) 26.6 %; MCH 29.7 pg (27.0-32.0); MCHC 33.8 g/dL (32.0-37.0); Mean Platelet Volume 10.5 FL (9.5-12.2); Monocytes # (A) 0.82 X 10*3/uL (0.20-1.00); Monocytes % (A) 11.7 %; NRBC Per 100 WBC 0 X 10*3/uL (0.00-0.01); Neutrophils # (A) 4.09 X 10*3/uL (1.80-7.70); Neutrophils % (A) 58.2 %; Platelet Count 310 X 10*3/uL (140-440); RBC 5.08 X 10*6/uL (4.40-5.60); RDW 13.4 % (11.5-14.5); WBC 7.02 X 10*3/uL (4.50-10.00)
[2024-06-11 15:32] LABS: Hepatitis A Antibody IgM Nonreactive (Nonreactive); Hepatitis B Core IgM Nonreactive (Nonreactive); Hepatitis B Surface Antigen Nonreactive (Nonreactive); Hepatitis C IgG Antibody Nonreactive (Nonreactive)
[2024-06-11 15:57] LABS: BUN/Creat Ratio 15.25 Ratio (12.00-20.00); Blood Urea Nitrogen 18.3 mg/dL (9.0-27.0); Chol/HDL Ratio 3.69 Ratio; Glucose 103 mg/dL (70-110); LDL Cholesterol,Calculated 73.6 mg/dL (0.0-131.0); Lipase 35 U/L (14-60)
[2024-06-11 15:58] LABS: ALT 62 U/L (10-49); AST 33 U/L (14-35); Albumin 4.3 g/dL (3.8-4.9); Albumin/Globulin Ratio 1.87 Ratio (1.60-3.17); Alkaline Phosphatase 43 U/L (41-126); Calcium 9.7 mg/dL (8.7-10.3); Chloride 104 mmol/L (96-109); Globulin 2.3 g/dL (1.6-3.3); Sodium 142 mmol/L (135-145); T4, Free (Free Thyroxine) 1.08 ng/dL (0.80-1.80); Total Bilirubin 0.6 mg/dL (0.3-1.2); Total Protein 6.6 g/dL (6.2-8.2)
== END | disposition home or self-care (01) ==
LOC: RADUSWWP 08:20
PROVIDERS: ATTEND Family Medicine
DX: R16.0 Hepatomegaly, not elsewhere classified (principal); K76.0 Fatty (change of) liver, not elsewhere classified; R97.8 Other abnormal tumor markers; E78.2 Mixed hyperlipidemia; R63.4 Abnormal weight loss; R74.01 Elevation of levels of liver transaminase levels; F41.0 Panic disorder [episodic paroxysmal anxiety]
CPT/HCPCS: 76700; 80053; 80061; 80074; 82533; 83690; 84439; 84443; 85025; 86301

== ENCOUNTER → 2024-06-13 | Outpatient (CLI) | payer OTHER ==
--- NOTE | 2024-06-13 09:51 | NM ---
EXAMINATION TYPE: NM hepatobiliary w EF DATE OF EXAM: 06/13/2024 COMPARISON: Abdominal ultrasound 06/11/2024, 08/16/2021, CT abdomen and pelvis 06/08/2024 CLINICAL INDICATION: Male, 54 years old with history of R14.0 bloating; TECHNIQUE: After the intravenous administration of 5.3 mCi Tc 99m Mebrofenin hepatobiliary scintigrap hy is performed. Immediate images post injection. FINDINGS: There is satisfactory initial accumulation of tracer by the liver. The gallbladder is visualized wit hin 90 minutes. The small bowel activity is noted within 22 minutes. At one hour 8 ounces of oral e nsure plus is given to mimic CCK and gallbladder ejection fraction is calculated at 72 %, in the norm al range. Therefore there is no scintigraphic evidence of cystic or common bile duct obstruction to suggest acute cholecystitis or gallbladder dyskinesia. IMPRESSION: Exam is within normal limits. [facility], , 06/13/2024 9:48 AM
== END | disposition home or self-care (01) ==
LOC: RADNMMAIN 06:46
PROVIDERS: ATTEND Family Medicine
DX: R14.0 Abdominal distension (gaseous) (principal)
CPT/HCPCS: 78226; A9537